=== PATIENT | female | born 1975 | race Caucasian/White ===

== ENCOUNTER 2021-09-29 12:57 | Outpatient (CLI) | payer BC | END 2021-09-29 12:58 | disposition home or self-care (01) | LOC: CSHCT 12:57 | PROVIDERS: ATTEND Specialist | DX: R59.1 Generalized enlarged lymph nodes (principal); J34.9 Unspecified disorder of nose and nasal sinuses; R59.0 Localized enlarged lymph nodes; K76.0 Fatty (change of) liver, not elsewhere classified | CPT/HCPCS: 70491; 71260 ==